=== PATIENT | female | born 1990 | race Caucasian/White ===

== ENCOUNTER 2016-09-21 19:49 | Emergency (ER) | payer OTHER ==
[~2016-09-21] VITALS: Ht 160 cm; Wt 63.5 kg
== END 2016-09-21 22:10 | disposition home or self-care (01) ==
LOC: CED 19:49 → CFTX 19:49
DX: L02.31 Cutaneous abscess of buttock (principal); F11.10 Opioid abuse, uncomplicated; F17.210 Nicotine dependence, cigarettes, uncomplicated; Z23 Encounter for immunization
CPT/HCPCS: 10060; 87070; 87077; 87186; 87205; 90471; 90715; 99283